=== PATIENT | male | born 1950 | race Caucasian/White ===

== ENCOUNTER 2016-10-05 14:33 | Emergency (ER) | payer OTHER ==
[~2016-10-05] VITALS: Ht 154.9 cm; Wt 70.3 kg
[2016-10-05 14:39] VITALS: BP 159/88
== END 2016-10-05 15:25 | disposition home or self-care (01) ==
LOC: ER 14:35
DX: L02.224 Furuncle of groin (principal)
CPT/HCPCS: A4606; A6402; Z7610

== ENCOUNTER 2017-02-06 14:58 | Emergency (ER) | payer OTHER ==
[~2017-02-06] VITALS: Ht 154.9 cm; Wt 68.9 kg
[2017-02-06 15:02] VITALS: BP 147/97
== END 2017-02-06 15:33 | disposition home or self-care (01) ==
LOC: ER 15:03
DX: N48.1 Balanitis (principal); K40.90 Unilateral inguinal hernia, without obstruction or gangrene, not specified as recurrent; I10 Essential (primary) hypertension
CPT/HCPCS: 99282; A4606; Z7610

== ENCOUNTER 2017-03-05 20:18 | Emergency (ER) | payer OTHER ==
[~2017-03-05] VITALS: Ht 154.9 cm; Wt 67.1 kg
[2017-03-05 20:18] VITALS: BP 127/73
[2017-03-05] MEDS ORDERED: SILVER NITRATE APPLICATOR 1 EA BOX ONE (20:40)
[2017-03-05] MEDS ORDERED: SILVER NITRATE APPLICATOR 1 EA BOX TP ONE (21:00)
== END 2017-03-05 21:11 | disposition home or self-care (01) ==
LOC: ER 20:21
DX: S01.512A Laceration without foreign body of oral cavity, initial encounter (principal); G20 Parkinson's disease; I10 Essential (primary) hypertension; K40.90 Unilateral inguinal hernia, without obstruction or gangrene, not specified as recurrent; X58.XXXA Exposure to other specified factors, initial encounter; Y93.89 Activity, other specified; Y92.89 Other specified places as the place of occurrence of the external cause; Y99.9 Unspecified external cause status
CPT/HCPCS: A4606; Z7610

== ENCOUNTER 2019-03-01 06:40 | Emergency (ER) | payer BC ==
[~2019-03-01] VITALS: Ht 154.9 cm; Wt 65.8 kg
[2019-03-01 06:46] VITALS: BP 131/77
== END 2019-03-01 06:58 | disposition home or self-care (01) ==
LOC: ER 06:40
DX: J02.9 Acute pharyngitis, unspecified (principal); G20 Parkinson's disease
CPT/HCPCS: Z7502

== ENCOUNTER 2021-06-26 19:36 | Emergency (ER) | payer BC ==
[~2021-06-26] VITALS: Ht 157.5 cm; Wt 65.8 kg
--- NOTE | 2021-06-26 20:12 | NUR ---
pt bibra c/o dizziness since am. pt aaox4 breathing evenly and unlabored. pt attached to cardiac montior and pox. MD at bedside for eval. pt skin is warm and dry. Pt given balnket and call light wtihin reach
--- NOTE | 2021-06-26 20:15 | NUR ---
PT [id number] FROM HOME C/O DIZZINESS SINCE THIS MORNING. PT LAST TOOK 20MG LOSARTAN @ 1800 TODAY. ALSO, SLIGHT MIDSTERNAL CHEST PRESSURE. PT ALERT AND ORIENTED. AMBULATORY WITH NON LABORED BREATHING.
[2021-06-26] MEDS ORDERED: MECLIZINE HCL 25 MG TABLET ONE ×2 (20:23→20:58)
[2021-06-26] MEDS ORDERED: MECLIZINE HCL 12.5 MG TABLET PO ONE (20:30)
--- NOTE | 2021-06-26 20:39 | NUR ---
taken to radiology
[2021-06-26] MEDS ORDERED: MECL-159 PO (21:32)
[2021-06-26 21:38] VITALS: BP 166/80
--- NOTE | 2021-06-26 21:38 | NUR ---
Patient discharged to home in stable condition. Written and verbal after care instructions given. Patient verbalizes understanding of instruction.
== END 2021-06-26 21:40 | disposition home or self-care (01) ==
LOC: ER 19:44
DX: R42 Dizziness and giddiness (principal); Z79.899 Other long term (current) drug therapy
CPT/HCPCS: 70450; 99284; J8597 ×2

== ENCOUNTER 2025-07-09 13:01 | Inpatient (IN) | payer BC ==
[~2025-07-09] VITALS: Ht 157.5 cm; Wt 70.3 kg
[~2025-07-09 13:01] MED LIST: MECL-159 PO
[2025-07-09 13:33] LABS: PLATELET COUNT (AUTO) 240 K/uL (150-450); RED BLOOD CELL COUNT(AUTO) 4.63 MIL/uL (4.5-6.0); RED CELL DISTRIBUTION WIDTH 14.1 % (11.5-15.0); WHITE BLOOD COUNT (AUTO) 8.5 K/uL (4.3-11.0)
[2025-07-09] MEDS ORDERED: MORPHINE SULFATE INJ 2 MG/ML DISP.SYRIN ONE (13:41)
[2025-07-09] MEDS: MORPHINE SULFATE INJ 2 MG/ML DISP.SYRIN IV ONE (13:45)
[2025-07-09 13:47] LABS: ASPARTATE AMINOTRANSFERASE 20 U/L (15-37); CALCIUM, SERUM 8.3 mg/dL (8.5-10.1); CREATININE 1.0 mg/dL (0.6-1.3); SODIUM SERUM 142 mmol/L (136-145); TOTAL PROTEIN, SERUM 6.7 g/dL (6.4-8.2); UREA NITROGEN, BLOOD 24 mg/dL (7-18)
[2025-07-09] MEDS: IV NS 0.9% 1,000 ML BAG IV ONE (14:04)
[2025-07-09 14:44] LABS: APPEARANCE,URINE CLEAR (CLEAR); BLOOD, URINE NEGATIVE Ery/uL (NEGATIVE); LEUKOCYTE ESTERASE ,URINE TRACE (NEGATIVE); NITRITE, URINE NEGATIVE (NEGATIVE); UGLUCOSE NEGATIVE (NEGATIVE)
[2025-07-09] MEDS ORDERED: EVOL140S2 SQ (14:45)
[2025-07-09] MEDS ORDERED: LOSA25TA27 PO ×2 (14:45)
[2025-07-09] MEDS ORDERED: TRAZ-182 PO (14:45)
[2025-07-09] MEDS ORDERED: ROSU20TA2 PO (14:45)
[2025-07-09] MEDS ORDERED: AMLO2.5T4 PO (14:45)
[2025-07-09] MEDS ORDERED: SAFI100T PO (14:45)
[2025-07-09] MEDS ORDERED: CARB1CAP3 PO ×4 (14:45)
[2025-07-09] MEDS ORDERED: TADA5TAB13 PO (14:45)
[2025-07-09 14:55] LABS: ADD URINE CULTURE NO
[2025-07-09] MEDS ORDERED: ONDANSETRON HCL/PF 4 MG/2 ML VIAL IVP PRN (17:30)
[2025-07-09] MEDS ORDERED: ACETAMINOPHEN 325 MG TABLET PO PRN (17:30)
[2025-07-09] MEDS ORDERED: MAG HYDROX/AL HYDROX/SIMETH 30 ML UDC PO PRN (17:30)
[2025-07-09] MEDS: LOSARTAN POTASSIUM 25 MG TABLET PO SCH (18:24)
[2025-07-09 19:00] VITALS: BP 168/71; TEMP 98.2; O2SAT 95
[2025-07-09] MEDS ORDERED: RYTARY PO SCH (19:00)
[2025-07-09 20:00] VITALS: BP 174/69; TEMP 97.9; O2SAT 95
[2025-07-09 20:09] LABS: LDL 40 mg/dL (0-99)
[2025-07-09] MEDS: IV NS 0.9% 1,000 ML IV PRN (20:38)
[2025-07-09] MEDS: TRAZODONE 50 MG TABLET PO SCH (21:28)
[2025-07-09] MEDS: ATORVASTATIN 10 MG TABLET PO SCH (21:28)
[2025-07-09 22:00] VITALS: BP 123/66; TEMP 97.8; O2SAT 95
[2025-07-10 05:55] LABS: PLATELET COUNT (AUTO) 208 K/uL (150-450); RED BLOOD CELL COUNT(AUTO) 4.26 MIL/uL (4.5-6.0); RED CELL DISTRIBUTION WIDTH 14.0 % (11.5-15.0); WHITE BLOOD COUNT (AUTO) 6.6 K/uL (4.3-11.0)
[2025-07-10 06:08] LABS: CALCIUM, SERUM 8.1 mg/dL (8.5-10.1); CREATININE 0.9 mg/dL (0.6-1.3); PHOSPHORUS 3.3 mg/dL (2.5-4.9); SODIUM SERUM 142 mmol/L (136-145); UREA NITROGEN, BLOOD 18 mg/dL (7-18)
[2025-07-10 07:30] VITALS: BP 150/83; TEMP 98.2; O2SAT 97
[2025-07-10] MEDS: RYTARY PO SCH ×2 (07:56→11:24)
[2025-07-10 08:42] VITALS: BP 150/83
[2025-07-10] MEDS: LOSARTAN POTASSIUM 25 MG TABLET PO SCH (08:42)
[2025-07-10] MEDS: AMLODIPINE BESYLATE 2.5 MG TABLET PO SCH (08:42)
[2025-07-10] MEDS ORDERED: IOHEXOL-300 100 ML VIAL IV ONE (13:58)
[2025-07-10] MEDS ORDERED: IV NS 0.9% 250 ML IV ONE (13:59)
[2025-07-10] MEDS ORDERED: RYTARY PO SCH ×5 (14:10→19:00)
[2025-07-11] MEDS ORDERED: RYTARY PO SCH ×2 (07:00→11:00)
[2025-07-11] MEDS ORDERED: SAFINAMIDE MESYLATE 100 MG PO SCH ×2 (09:00)
[2025-07-11] MEDS ORDERED: TADALAFIL 5 MG PO SCH (09:00)
== END 2025-07-10 14:58 | disposition left against medical advice (07) | DRG 440 ==
LOC: ER 13:05 → TELE 17:48 → MED 18:13
PROVIDERS: ADMIT Nurse Practitioner Acute Care; ATTEND Nurse Practitioner Acute Care
DX: K85.90 Acute pancreatitis without necrosis or infection, unspecified (principal); G20.A1 Parkinson's disease without dyskinesia, without mention of fluctuations; E78.5 Hyperlipidemia, unspecified; I10 Essential (primary) hypertension
CPT/HCPCS: 36415; 71045-TC; 76705-TC; 80048-TC; 80061-TC; 80076-TC; 81001; 83690-TC; 83735-TC; 84100-TC; 84484-TC; 85025-TC; 85378-TC; A4223; G0378; J2270; J7030; J7050; Q9967